=== PATIENT | male | born 1955 | race Asian ===

== ENCOUNTER 2017-08-05 10:11 | Emergency (ER) | payer OTHER ==
[2017-08-05] MEDS: ONDANSETRON (ODT) 4 MG TAB ODT (12:05)
[2017-08-05] MEDS: ACETAMINOPHEN 500 MG TAB PO (12:05)
[2017-08-05] MEDS: IBUPROFEN 800 MG TAB PO (12:05)
== END 2017-08-05 13:16 | disposition home or self-care (01) ==
LOC: FTE 10:11
DX: J02.9 Acute pharyngitis, unspecified (principal); R50.9 Fever, unspecified; R00.0 Tachycardia, unspecified; E11.9 Type 2 diabetes mellitus without complications; I10 Essential (primary) hypertension; R11.10 Vomiting, unspecified
CPT/HCPCS: 71010; 99284-25